=== PATIENT | male | born 1990 | race Caucasian/White ===

== ENCOUNTER 2016-09-04 23:01 | Emergency (ER) | payer OTHER ==
--- NOTE | 2016-09-04 23:21 | ED Physician Documentation ---
PD HPI ABD PAIN - Stated complaint Stated Complaint: RT FLANK PAIN - Chief complaint Chief Complaint: Abd Pain - History obtained from History obtained from: Patient - History of Present Illness Timing - onset: How many days ago (initially with some pain in right flank 2 days ago, then abated, with intermittent pain right back and side until tonight when had abrupt worsening and pain moved to RLQ with radiation to right groin/ testicle.) Timing - details: Abrupt onset, Still present Quality: Aching, Sharp, Pain Location: RLQ Radiation: Right flank Associated symptoms: Nausea. No: Fever, Vomiting, Diarrhea, Melena Similar symptoms before: Has not had sx before Recently seen: Not recently seen Review of Systems Constitutional: reports: Chills. denies: Fever Nose: denies: Rhinorrhea / runny nose, Congestion Throat: denies: Sore throat Cardiac: denies: Chest pain / pressure Respiratory: denies: Cough GI: reports: Abdominal Pain, Nausea. denies: Constipation, Diarrhea : denies: Dysuria, Frequency, Discharge Skin: denies: Rash, Lesions Neurologic: denies: Syncope, Headache PD PAST MEDICAL HISTORY - Past Medical History Past Medical History: No Cardiovascular: None Respiratory: None Neuro: None Endocrine/Autoimmune: None GI: None : None HEENT: None Psych: None Musculoskeletal: None Derm: None - Past Surgical History Past Surgical History: Yes General: Other Ortho: Other - Present Medications Home Medications: Ambulatory Orders Medication Instructions Recorded Confirmed Ondansetron Odt [Zofran] 4 mg TL Q6H PRN #15 tablet 09/05/16 Oxycodone HCl/Acetaminophen 1 each PO Q6H PRN #20 tablet 09/05/16 [Percocet 5-325 mg Tablet] - Allergies Allergies/Adverse Reactions: Allergies Allergy/AdvReac Type Severity Reaction Status Date / Time Sulfa (Sulfonamide AdvReac Anaphylaxis Verified 09/04/16 23:14 Antibiotics) - Social History Does the pt smoke?: Yes Smoking Status: Current every day smoker Does the pt drink ETOH?: Yes Does the pt have substance abuse?: No - Immunizations Immunizations are current?: Yes - POLST Patient has POLST: No PD ED PE NORMAL - Vitals Vital signs reviewed: Yes - General General: Alert and oriented X 3, Well developed/nourished, Other (appears in pain) - Cardiac Cardiac: RRR, No murmur - Respiratory Respiratory: Clear bilaterally - Abdomen Abdomen: Normal bowel sounds, Soft, Non distended, No organomegaly, Other (mild tender RLQ without guarding) - Male Male : Deferred - Rectal Rectal: Deferred - Back Back: Other (moderate right CVA tender to percussion) - Derm Derm: Normal color, Warm and dry, No rash - Neuro Neuro: Alert and oriented X 3, No motor deficit, Normal speech - Psych Psych: Normal mood Results - Vitals Vitals: Vital Signs - 24 hr 09/04/16 23:11 Temperature 36.7 C Heart Rate 81 Respiratory 18 Rate Blood Pressure 138/94 H O2 Saturation 99 Oxygen O2 Source Room air - Rads (name of study) KUB CT Radiology: Prelim report reviewed, EMP read contemporaneously (5 mm stone at UVJ with mild obstruction/ hydronephrosis) PD MEDICAL DECISION MAKING - ED course Complexity details: re-evaluated patient (much improved with pain meds PO. IV start missed initially and he declined IV after that. Went with oral meds (did not want IM). ), considered differential, d/w patient Departure - Departure Disposition: 01 Home, Self Care Clinical Impression: Flank pain, acute, Ureterolithiasis Condition: Stable Record reviewed to determine appropriate education?: Yes Instructions: ED Stone Renal W Colic Prescriptions: Oxycodone HCl/Acetaminophen [Percocet 5-325 mg Tablet] 1 each PO Q6H PRN #20 tablet PRN Reason: Pain Ondansetron Odt [Zofran] 4 mg TL Q6H PRN #15 tablet PRN Reason: Nausea / Vomiting Comments: Drink adequate fluids. Ibuprofen 600-800 mg three times daily for 3-5 days. Add Ondansatron as needed for nausea, and Tylenol or Percocet as needed for pain. Recheck if not improved over the next 2-3 days, sooner if worse. Discharge Date/Time: 09/05/16 00:39
[2016-09-04 23:31] VITALS: BP 138/94
[2016-09-04] MEDS ORDERED: HYDROmorphone 1 MG/ML SYRINGE ONE (23:43)
[2016-09-04] MEDS ORDERED: ONDANSETRON 4 MG/2 ML VIAL ONE (23:44)
[2016-09-05] MEDS: ONDANSETRON 4 MG/2 ML VIAL IVP STA (00:03)
[2016-09-05] MEDS: HYDROmorphone 1 MG/ML SYRINGE IVP STA (00:03)
[2016-09-05] MEDS ORDERED: oxyCOD/ACETAMIN 5 MG/325 MG TABLET PO ONE (00:05)
[2016-09-05] MEDS ORDERED: ONDANSETRON ODT 4 MG TABLET ONE (00:05)
[2016-09-05] MEDS: oxyCOD/ACETAMIN 5 MG/325 MG TABLET PO STA (00:07)
[2016-09-05] MEDS: ONDANSETRON ODT 4 MG TABLET TL STA (00:07)
--- NOTE | 2016-09-05 00:12 | CT Preliminary Report ---
Exam: CT KUB IMPRESSION: 1. Moderately obstructing 5 x 3 mm stone at the right ureterovesical junction. 2. Approximately 2 tiny nonobstructing stones in the left kidney. 3. Fatty liver. 4. Urinary bladder wall thickening. This may be due to hypertrophy and nondistention. Cystitis would also be in the differential diagnosis. [facility] SITE ID: [id number]
--- NOTE | 2016-09-05 00:15 | CT Report ---
EXAM: CT ABDOMEN AND PELVIS (CT KUB) EXAM DATE: 09/04/2016 11:51 PM. CLINICAL HISTORY: Right abd/flank pain. COMPARISONS: None. TECHNIQUE: Routine axial helical CT imaging was performed through the abdomen and pelvis without IV c ontrast. Reconstructions: Coronal and sagittal. In accordance with CT protocol optimization, one or more of the following dose reduction techniques w ere utilized for this exam: automated exposure control, adjustment of mA and/or KV based on patient s ize, or use of iterative reconstructive technique. FINDINGS: Lung Bases: Unremarkable. Right Kidney/Ureter: No stones are seen in the kidney. Moderately obstructing stone at the ureteroves ical junction measuring 5 x 3 mm. Left Kidney/Ureter: Approximately 2 tiny nonobstructing stones in the kidney measuring about 2 mm. No ureteral stone or obstructive uropathy seen. Other Solid Organs: Fatty liver. Spleen, pancreas, and adrenals show no focal abnormalities on this n oncontrast examination. Gallbladder/Bile Ducts: Unremarkable. Peritoneal Cavity: No free fluid, free air or caryl adenopathy. Bowel is grossly unremarkable. Append ix appears normal. Pelvic Organs: Decompressed urinary bladder with wall thickening. Visualized pelvic organs are otherw ise unremarkable. Vasculature: Unremarkable. Other: Right unilateral L5 pars defect. IMPRESSION: 1. Moderately obstructing 5 x 3 mm stone at the right ureterovesical junction. 2. Approximately 2 tiny nonobstructing stones in the left kidney. 3. Fatty liver. 4. Urinary bladder wall thickening. This may be due to hypertrophy and nondistention. Cystitis would also be in the differential diagnosis. [facility] Referring Provider Line: [phone] SITE ID: [id number]
[2016-09-05] MEDS ORDERED: oxyCODONE/ACET 5/325 Prepack 4 PO ONE (00:28)
[2016-09-05] MEDS: oxyCODONE/ACET 5/325 Prepack 4 PO STA (00:38)
== END 2016-09-05 00:39 | disposition home or self-care (01) ==
LOC: ED 23:01
DX: N13.2 Hydronephrosis with renal and ureteral calculous obstruction (principal); K76.0 Fatty (change of) liver, not elsewhere classified; F17.200 Nicotine dependence, unspecified, uncomplicated
CPT/HCPCS: 74176; 99283; 99284

== ENCOUNTER 2017-07-14 16:21 | Emergency (ER) | payer MEDICAID, OTHER ==
[2017-07-14 16:31] VITALS: BP 148/94
--- NOTE | 2017-07-14 16:32 | ED Physician Documentation ---
PD HPI LOWER EXT INJURY - Stated complaint Stated Complaint: L THIGH WOUND - Chief complaint Chief Complaint: Wound - History obtained from History obtained from: Patient - History of Present Illness PD HPI LOW EXT INJURY LOCATION: Left, Thigh Type of injury: Other (persistent/recurrent abscess left medial thigh that got big and drained again today.) Timing - onset: How many weeks ago (has been recurring for couple weeks.) Timing - duration: Weeks Timing - details: Gradual onset, Still present, Waxing and waning (will drain and then recur.) Worsened by: Palpating Associated symptoms: Swelling. No: Weakness, Numbness Similar symptoms before: No diagnosis Review of Systems Constitutional: denies: Fever, Chills, Myalgias Skin: reports: Lesions Neurologic: denies: Focal weakness, Numbness PD PAST MEDICAL HISTORY - Past Medical History Cardiovascular: None Respiratory: None Neuro: None Endocrine/Autoimmune: None GI: None : None HEENT: None Psych: None Musculoskeletal: None Derm: None - Past Surgical History Past Surgical History: Yes General: Other Ortho: Other - Present Medications Home Medications: Ambulatory Orders Medication Instructions Recorded Confirmed Albuterol 2.5 mg INH Q4H PRN 07/14/17 07/14/17 Chlorhexidine Gluconate [Hibiclens] 10 ml TP DAILY #473 ml 07/14/17 Doxycycline Monohydrate 100 mg PO BID #14 tablet 07/14/17 HYDROcod/ACETAM 5/325 [Eminence 5/325] 1 tab PO Q6H PRN #20 tablet 07/14/17 Mupirocin 1 applic TP TID #15 oint...g. 07/14/17 - Allergies Allergies/Adverse Reactions: Allergies Allergy/AdvReac Type Severity Reaction Status Date / Time Sulfa (Sulfonamide AdvReac Anaphylaxis Verified 07/14/17 16:31 Antibiotics) - Social History Does the pt smoke?: Yes Smoking Status: Current every day smoker Does the pt drink ETOH?: Yes Does the pt have substance abuse?: No - Immunizations Immunizations are current?: Yes - POLST Patient has POLST: No PD ED PE NORMAL - Vitals Vital signs reviewed: Yes - General General: Alert and oriented X 3, No acute distress, Well developed/nourished - Derm Derm: Normal color, Warm and dry - Extremities Extremities: Other (left upper medial thigh with skin hole without drainage now. There is underlying induration and some skin redness. Bedside U/S showed soft tissue swelling without residual fluid collection. ) - Neuro Neuro: Alert and oriented X 3, No motor deficit, No sensory deficit, Normal speech Results - Vitals Vitals: Vital Signs - 24 hr 07/14/17 16:28 Temperature 36.9 C Heart Rate 80 Respiratory 16 Rate Blood Pressure 148/94 H O2 Saturation 99 Oxygen O2 Source Room air PD MEDICAL DECISION MAKING - ED course Complexity details: considered differential (abscess that has self drained, and bedside U/S showing that it is adequately drained.), d/w patient Departure - Departure Disposition: Home, Self Care Clinical Impression: Abscess of left thigh Condition: Stable Record reviewed to determine appropriate education?: Yes Instructions: ED Staph Infec Abx Tx Only Prescriptions: Chlorhexidine Gluconate [Hibiclens] 10 ml TP DAILY #473 ml Doxycycline Monohydrate 100 mg PO BID #14 tablet HYDROcod/ACETAM 5/325 [[place]minence 5/325] 1 tab PO Q6H PRN #20 tablet PRN Reason: Pain Mupirocin 1 applic TP TID #15 oint...g. Comments: Warm soaks or moist towels to the area a few times a day to increase blood flow and promote drainage. It seems to have drained pretty adequately at this point. Doxycycline twice daily for a week to try to get rid of the infection underneath. He can use mupirocin topical antibiotic at the area. Use chlorhexidine antiseptic body wash whole body when you are showering and in particular around the groin and rectal area to decrease the amount of germs that are present. See if this allows it to heal up fully and be completely gone. Subsequently can do the chlorhexidine antiseptic wash once or twice a week ongoing to prevent recurrences. Recheck if not fully gone over the next week. Discharge Date/Time: 07/14/17 17:12
[2017-07-14] MEDS ORDERED: MUPIROCIN 2% OINT 1 GM TOP STA (17:02)
[2017-07-14] MEDS ORDERED: HYDROcod/ACETAM 5/325 MG TABLET PO STA (17:02)
[2017-07-14] MEDS ORDERED: DOXYCYCLINE 100 MG TABLET PO STA (17:02)
== END 2017-07-14 17:12 | disposition home or self-care (01) ==
LOC: ED 16:21
DX: L02.416 Cutaneous abscess of left lower limb (principal); F17.200 Nicotine dependence, unspecified, uncomplicated
CPT/HCPCS: 99283; A9270

== ENCOUNTER 2017-07-27 14:30 | Emergency (ER) | payer MEDICAID ==
[2017-07-27 14:47] VITALS: BP 146/95
--- NOTE | 2017-07-27 15:28 | ED Physician Documentation ---
PD HPI SKIN - Stated complaint Stated Complaint: LFT THIGH PX - Chief complaint Chief Complaint: Wound - History obtained from History obtained from: Patient, Family (spouse) - History of Present Illness Timing - details: Gradual onset Quality / character: Swelling Recently seen: Emergency Dept - Additional information Additional information: The patient is a 26-year-old male who complains of recurrent painful swelling on his right thigh near the groin. He was seen here 2 weeks ago with similar presentation, only worse at that time. He was prescribed a one-week course of doxycycline for staph infection. The infection almost completely cleared. However since the course of antibiotics completed 6 days ago the swelling has resumed, but is not as bad as before. Review of Systems Constitutional: denies: Fever GI: denies: Abdominal Pain, Vomiting : denies: Dysuria, Testicular pain Skin: denies: Rash Musculoskeletal: denies: Back pain Neurologic: denies: Headache PD PAST MEDICAL HISTORY - Past Medical History Past Medical History: No Cardiovascular: None Respiratory: None Endocrine/Autoimmune: None GI: None : None HEENT: None Psych: None Musculoskeletal: None Derm: None - Past Surgical History Past Surgical History: Yes General: Other Ortho: Other - Present Medications Home Medications: Ambulatory Orders Medication Instructions Recorded Confirmed Albuterol 2.5 mg INH Q4H PRN 07/14/17 07/14/17 Chlorhexidine Gluconate [Hibiclens] 10 ml TP DAILY #473 ml 07/14/17 Doxycycline Monohydrate 100 mg PO BID #14 tablet 07/14/17 HYDROcod/ACETAM 5/325 [Barry 5/325] 1 tab PO Q6H PRN #20 tablet 07/14/17 Mupirocin 1 applic TP TID #15 oint...g. 07/14/17 Doxycycline Monohydrate 100 mg PO BID #20 tablet 07/27/17 HYDROcod/ACETAM 5/325 [Vicodin 1 ea PO Q6H PRN #10 tablet 07/27/17 5/325] - Allergies Allergies/Adverse Reactions: Allergies Allergy/AdvReac Type Severity Reaction Status Date / Time Sulfa (Sulfonamide AdvReac Anaphylaxis Verified 07/14/17 16:31 Antibiotics) - Social History Does the pt smoke?: Yes Smoking Status: Current every day smoker Does the pt drink ETOH?: Yes Does the pt have substance abuse?: No - Immunizations Immunizations are current?: Yes - POLST Patient has POLST: No PD ED PE NORMAL - Vitals Vital signs reviewed: Yes (Initially hypertensive.) - General General: Alert and oriented X 3, Well developed/nourished - HEENT HEENT: Atraumatic - Respiratory Respiratory: No respiratory distress - Abdomen Abdomen: Soft, Non tender - Derm Derm: No rash - Extremities Extremities: Other (There is a 1 cm diameter area of slight erythema, swelling, and tenderness to palpation at the right anterior medial thigh, near the groin. There is no significant inguinal adenopathy.) - Neuro Neuro: Alert and oriented X 3, No motor deficit, Normal speech Results - Vitals Vitals: Oxygen O2 Source Room air PD MEDICAL DECISION MAKING - ED course Complexity details: reviewed old records, considered differential, d/w patient, d/w family ED course: The patient's presentation is significant for a recurrent/persistent abscess in his right proximal thigh. I discussed with him and his the benefit of incision and drainage, but the patient refused, stating that it almost completely cleared up with the antibiotic that had been previously prescribed. He wants to be treated with antibiotic again, and he will agree to incision and drainage if he has continued infection, or recurrence of infection after a second course of antibiotics. He is being discharged with prescription for 10 day course of doxycycline. I discussed with him and his potentially worrisome signs or symptoms that should prompt reevaluation in the emergency department. Departure - Departure Disposition: 01 Home, Self Care Clinical Impression: Abscess of left thigh Condition: Stable Instructions: ED Staph Infec Abx Tx Only Follow-Up: Alex Méndez PA-C [Primary Care Provider] - Prescriptions: Doxycycline Monohydrate 100 mg PO BID #20 tablet HYDROcod/ACETAM 5/325 [Vicodin 5/325] 1 ea PO Q6H PRN #10 tablet PRN Reason: Pain Comments: Take doxycycline twice daily as prescribed. Apply hot soaks to the infected areas intermittently for the next 3 or 4 days. You can use ibuprofen, up to 800 mg 3 times daily for its anti-inflammatory effect. You can use Vicodin as prescribed if needed for pain. Follow up with your primary physician with within 2 weeks as scheduled. Return to the emergency department if you develop increasing pain or swelling, or otherwise worsening symptoms. Discharge Date/Time: 07/27/17 15:33
== END 2017-07-27 15:33 | disposition home or self-care (01) ==
LOC: ED 14:30
DX: L02.415 Cutaneous abscess of right lower limb (principal); F17.200 Nicotine dependence, unspecified, uncomplicated
CPT/HCPCS: 99283

== ENCOUNTER 2017-09-05 08:00 | Outpatient (CLI) | payer MEDICAID ==
[2017-09-05 12:29] LABS: ALBUMIN 4.3 g/dL (3.2-5.5); ALBUMIN/GLOBULIN RATIO 1.4 (1.0-2.2); BASOPHILS # (AUTO) 0.1 10^3/uL (0.0-0.1); BASOPHILS % (AUTO) 0.8 %; CALCIUM 9.5 mg/dL (8.5-10.3); CREATININE 0.9 mg/dL (0.6-1.2); EOSINOPHILS # (AUTO) 0.4 10^3/uL (0.0-0.7); EOSINOPHILS % (AUTO) 4.7 %; HGB - HEMOGLOBIN 16.7 g/dL (14.0-18.0); LYMPHOCYTES # (AUTO) 2.5 10^3/uL (1.5-3.5); LYMPHOCYTES % (AUTO) 26.2 %; MEAN CORPUSCULAR HEMOGLOBIN 32.6 pg (27.0-31.0); MEAN CORPUSCULAR HGB CONC 34.4 g/dL (32.0-36.0); MEAN CORPUSCULAR VOLUME 94.8 fL (80.0-94.0); MEAN PLATELET VOLUME 9.6 fL (7.4-11.4); MONOCYTES # (AUTO) 0.8 10^3/uL (0.0-1.0); MONOCYTES % (AUTO) 8.8 %; NEUTROPHILS # (AUTO) 5.7 10^3/uL (1.5-6.6); NEUTROPHILS % (AUTO) 59.5 %; PLT - PLATELET COUNT 201 10^3/uL (130-450); RED BLOOD COUNT 5.12 10^6/uL (4.70-6.10); RED CELL DISTRIBUTION WIDTH 12.8 % (12.0-15.0); TOTAL PROTEIN 7.3 g/dL (6.7-8.2); WHITE BLOOD COUNT 9.5 x10^3/uL (4.8-10.8)
== END 2017-09-05 08:01 ==
LOC: LAB.N 08:00
PROVIDERS: ATTEND Physician Assistant Medical
DX: F10.10 Alcohol abuse, uncomplicated (principal); Z72.0 Tobacco use; J45.909 Unspecified asthma, uncomplicated
CPT/HCPCS: 36415; 80053; 85025

== ENCOUNTER 2017-10-16 08:00 | Outpatient (CLI) | payer MEDICAID | END 2017-10-16 08:01 | disposition home or self-care (01) | LOC: LAB.R 08:00 | PROVIDERS: ATTEND Internal Medicine Gastroenterology | DX: L02.92 Furuncle, unspecified (principal); L05.02 Pilonidal sinus with abscess | CPT/HCPCS: 87081 ==

== ENCOUNTER 2017-10-16 14:14 | Outpatient (CLI) | payer MEDICAID | END 2017-10-16 14:15 | disposition home or self-care (01) | LOC: LAB 14:14 | PROVIDERS: ATTEND Internal Medicine Gastroenterology | DX: L02.92 Furuncle, unspecified (principal); L05.02 Pilonidal sinus with abscess | CPT/HCPCS: 87081; 87640 ==

== ENCOUNTER 2019-02-26 09:00 | Outpatient (CLI) | payer BC, MEDICAID | END 2019-02-26 23:59 | disposition home or self-care (01) | LOC: LAB.R 09:00 | PROVIDERS: ATTEND Physician Assistant Medical | DX: J02.9 Acute pharyngitis, unspecified (principal) | CPT/HCPCS: 87070 ==

== ENCOUNTER 2019-09-19 08:43 | Outpatient (CLI) | payer OTHER | END 2019-09-19 08:44 | disposition home or self-care (01) | LOC: LAB 08:43 | PROVIDERS: ATTEND Surgery | DX: Z01.812 Encounter for preprocedural laboratory examination (principal); L05.91 Pilonidal cyst without abscess; Z20.828 Contact with and (suspected) exposure to other viral communicable diseases | CPT/HCPCS: 81599 ==

== ENCOUNTER 2019-09-23 07:25 | Day surgery (SDC) | payer OTHER ==
[2019-09-23] MEDS ORDERED: NEOSTIGMINE 1 MG/1 ML 10 ML MDV IVP ONE (07:26)
[2019-09-23] MEDS ORDERED: ROCURONIUM 50 MG/5 ML VIAL IVP ONE (07:26)
[2019-09-23] MEDS ORDERED: PROPOFOL 200 MG/20 ML VIAL IVP ONE (07:26)
[2019-09-23] MEDS ORDERED: GLYCOPYRROLATE 1 MG/5 ML VIAL IVP ONE (07:26)
[2019-09-23] MEDS ORDERED: KETAMINE 500 MG/10 ML VIAL IVP ONE (07:26)
[2019-09-23] MEDS ORDERED: KETOROLAC 30 MG/ML VIAL IVP ONE (07:26)
[2019-09-23] MEDS ORDERED: MIDAZOLAM 2 MG/2 ML VIAL IVP ONE (07:26)
[2019-09-23] MEDS ORDERED: ONDANSETRON 4 MG/2 ML VIAL IVP ONE (07:26)
[2019-09-23] MEDS ORDERED: fentaNYL 100 MCG/2 ML VIAL IVP ONE (07:26)
[2019-09-23] MEDS ORDERED: LACTATED RINGERS 1,000 ML IV ONE ×2 (07:50→09:58)
[2019-09-23] MEDS ORDERED: LIDOCAINE 1%-EPI 1:100000 20 ML MDV ONE (07:57)
[2019-09-23] MEDS ORDERED: BUPIVACAINE 0.25% PF 30 ML VIAL ONE ×2 (07:57→08:20)
[2019-09-23] MEDS ORDERED: ceFAZolin 3 GM in SODIUM CHLORIDE 0.9% 100ML 100 ML IV ONE (08:00)
--- NOTE | 2019-09-23 08:03 | ANESTHESIA ---
Pre-Anesthesia VS, & Labs - Diagnosis pilonidal cyst - Procedure Pilonidal cystectomy Vital Signs: Temp Pulse Resp BP Pulse Ox 36.5 C 83 16 140/105 H 97 09/23/19 07:30 09/23/19 07:30 09/23/19 07:30 09/23/19 07:30 09/23/19 07:30 Height 5 ft 10 in Weight (kg) 119.5 kg Body Mass Index 33.7 - NPO >8 hours Home Medications and Allergies Home Medications: Ambulatory Orders Fluticasone 44 Mcg [Flovent] 1 puffs INH BID 09/15/19 Omeprazole 40 mg PO DAILY 09/15/19 Active Medications Cefazolin Sodium 3 gm/ Sodium (Chloride) 100 mls @ 200 mls/hr IV ONCE ONE Stop: 09/23/19 08:29 Albuterol 2.5 mg INH Q4H PRN 07/14/17 Fluticasone 44 Mcg [Flovent] 1 puffs INH BID 09/15/19 Omeprazole 40 mg PO DAILY 09/15/19 Allergies/Adverse Reactions: Allergies Allergy/AdvReac Type Severity Reaction Status Date / Time Sulfa (Sulfonamide AdvReac Anaphylaxis Verified 09/22/19 13:37 Antibiotics) Anes History & Medical History - Anesthetic History Anesthesia Complications: reports: No previous complications Family history of Anesthesia Complications: Denies Family history of Malignant Hyperthermia: Denies - Medical History Cardiovascular: reports: None, Other (bicuspid aortic valve) Pulmonary: reports: Asthma (pm steroid inhaler) Gastrointestinal: reports: GERD Urinary: reports: Kidney stones Neuro: reports: None Musculoskeletal: reports: None Endocrine/Autoimmune: reports: None Blood Disorders: reports: None Skin: reports: None Smoking Status: Former smoker (quit march 04 2019) Psychosocial: reports: Anxiety, Alcohol ("once every two weeks") - Surgical History General:  Orthopedic: Other Exam General: Alert, Oriented x3, Cooperative, No acute distress Dental: WNL Mouth Openin Fingerbreadth Neck Mobility: Normal Mallampati classification: II Thyromental Distance: 4-6 cm Respiratory: Lungs clear, Normal breath sounds, No respiratory distress, No accessory muscle use Cardiovascular: Regular rate, Normal S1, Normal S2, No murmurs Abdomen: Normal bowel sounds, Soft, No tenderness, No hepatospenomegaly, No masses Extremities: No clubbing, No cyanosis, No edema, Normal pulses, No tenderness/swelling Neurological: Normal gait, Normal speech, Strength at 5/5 X4 ext, Normal tone, Sensation intact, Cranial nerves 3-12 NL, Reflexes 2+ Mental/Cognitive Status: Alert/Oriented X3, Normal for patient Cognitive Status: Within normal limits Plan Anesthesia Type: General Consent for Procedure(s) Verified and Reviewed: Yes Code Status: Attempt Resuscitation ASA classification: 2-Mild systemic disease Is this case an emergency?: No
[2019-09-23] MEDS ORDERED: metroNIDAZOLE 500 MG/100 ML 500 MG/100 ML BAG ONE (08:06)
[2019-09-23] MEDS ORDERED: BUPIVACAINE 0.25% PF 30 ML VIAL SUBQ ONE ×2 (09:08)
[2019-09-23] MEDS ORDERED: HYDROcod/ACETAM 5/325 MG TABLET PO PRN (09:58)
[2019-09-23] MEDS: fentaNYL 100 MCG/2 ML VIAL ONE ×2 (10:06→10:19)
[2019-09-23] MEDS ORDERED: ACETAMINOPHEN 1,000 MG/100 ML 100 ML IV ONE (10:11)
--- NOTE | 2019-09-23 10:42 | OPERATIVE REPORT ---
DATE OF SERVICE: 09/23/2019 Physician: Uvaldo Johnson MD PREOPERATIVE DIAGNOSIS: Pilonidal disease, complicated. POSTOPERATIVE DIAGNOSIS: Pilonidal disease, complicated. PROCEDURE PERFORMED: Pilonidal cystectomy, [place] procedure. SURGEON: Uvaldo Johnson MD POT MAKER: None. TYPE OF ANESTHESIA 1. General endotracheal anesthesia. 2. Local anesthesia with Marcaine 60 mL of 0.25. ESTIMATED BLOOD LOSS: 100 mL DRAINS: None. FINDINGS: A very extensive or complicated pilonidal cyst disease. Numerous midline pits and significant scar tissue. He had an inflammatory mass measuring approximately 2 x 4 x 6 cm. SPECIMEN: Clinically benign, not sent for pathology. DRAINS: None. INDICATIONS FOR PROCEDURE: Patient is a healthy 29-year-old gentleman with significant pilonidal cyst disease for several years. He has near daily bleeding. He presents for excision. Risks discussed, alternatives discussed. All questions answered and consent obtained. PROCEDURE: Patient was properly identified, brought to the operating room. While on the stretcher general endotracheal anesthesia was induced. Sequential compression devices were placed. He was carefully repositioned prone. He was prepped and draped in a sterile fashion, given preoperative antibiotics. Local anesthetic was given throughout the procedure. He had a 1 cm inflammatory nodule cephalad. Approximately 3 cm caudad in midline. He had 3 nearly adjacent sinus tracts. An additional sinus tract was present, another 2 cm caudad. An elliptical incision was made around the inflammatory nodule and extended left lateral. The midline sinus tracts were excised with an 11 blade. He had significant scarring to the midline requiring taking a small portion of the midline skin, connecting the sinus tract area. The pilonidal cyst was removed in its entirety, back to normal healthy tissue. Subcutaneous flaps were created right lateral and left lateral. Hemostasis was achieved with cautery. Deep subcutaneous tissue was closed with interrupted 2-0 Vicryl suture. Buried interrupted subdermal 3-0 Vicryl sutures were then placed at the lateral incision. Skin was closed with vertical mattress 3-0 nylon. He tolerated the procedure well, was placed back on the stretcher, awakened and brought to Recovery in good condition. TD: 09/23/2019 10:32 [facility]
[2019-09-23 11:30] VITALS: BP 132/80
== END 2019-09-23 07:26 | disposition home or self-care (01) ==
LOC: SDS 07:25
PROVIDERS: ATTEND Surgery
DX: L05.92 Pilonidal sinus without abscess (principal); J45.909 Unspecified asthma, uncomplicated; Z87.891 Personal history of nicotine dependence
CPT/HCPCS: 11772; J0131; J7120

== ENCOUNTER 2019-12-16 14:50 | Outpatient (CLI) | payer SELFPAY | END 2019-12-16 23:59 | disposition home or self-care (01) | LOC: COV 14:50 | PROVIDERS: ATTEND Family Medicine | DX: Z20.828 Contact with and (suspected) exposure to other viral communicable diseases (principal) ==

== ENCOUNTER 2020-03-15 10:03 | Outpatient (CLI) | payer OTHER | END 2020-03-15 10:04 | disposition home or self-care (01) | LOC: COV 10:03 | PROVIDERS: ATTEND Family Medicine | DX: Z20.828 Contact with and (suspected) exposure to other viral communicable diseases (principal) ==

== ENCOUNTER 2021-08-23 08:00 | Outpatient (CLI) | payer OTHER ==
--- NOTE | 2021-08-23 15:12 | XRAY Report ---
PROCEDURE: Shoulder 3 View RT INDICATIONS: SPRAIN OF R SHOULDER TECHNIQUE: 3 views of the shoulder were acquired. COMPARISON: None. FINDINGS: Bones: No fractures or dislocations. No suspicious bony lesions. Visualized ribs appear intact. Soft tissues: No suspicious soft tissue calcifications. IMPRESSION: No acute fracture. No osseous lesion. If symptoms and/or clinical suspicion for patholog y continue, further assessment with repeat plain films, or advanced imaging (e.g., CT, MRI, or bone s can) is recommended for further assessment. Reviewed by: Cisco Guzman MD on 08/23/2021 3:11 PM PDT Approved by: Cisco Guzman MD on 08/23/2021 3:11 PM PDT Station ID: [id number]
== END 2021-08-23 23:59 | disposition home or self-care (01) ==
LOC: DI.N 08:00
PROVIDERS: ATTEND Physician Assistant
DX: S43.491A Other sprain of right shoulder joint, initial encounter (principal)

== ENCOUNTER 2022-02-10 07:29 | Outpatient (CLI) | payer OTHER | END 2022-02-10 23:59 | disposition critical access hospital (66) | LOC: EMS 07:29 | DX: J45.901 Unspecified asthma with (acute) exacerbation (principal) | CPT/HCPCS: A0425; A0427 ==

== ENCOUNTER 2022-02-10 07:46 | Emergency (ER) | payer OTHER ==
[2022-02-10] MEDS ORDERED: LORazepam 2 MG/ML VIAL IVP STA (07:52)
[2022-02-10] MEDS ORDERED: SODIUM CHLORIDE 0.9% 1,000 ML IV STA (07:55)
--- NOTE | 2022-02-10 08:12 | ED Physician Documentation ---
History of Present Illness - Stated complaint Stated Complaint: SOA - Chief complaint Chief Complaint: Resp - History obtained from History obtained from: Patient, EMS - History of Present Illness Timing: Today Pain level max: 0 Pain level now: 0 - Additonal information Additional information: Patient is a 31-year-old male who presents to the emergency department stating he has a history of asthma. He was having difficulty breathing this morning. Was picked up by EMS. EMS states that the patient had significant difficulty breathing initially. They gave 2 DuoNeb treatments, Solu-Medrol, magnesium and epinephrine. Patient is currently breathing easier. He is able to speak in several word sentences. He states he feels like his chest is still tight. He states he has not been sick recently. No fevers. No cough. No chills. He states he takes medications at home but does not know what they are. Nothing was making his symptoms better or worse at home. Review of Systems Ten Systems: 10 systems reviewed and negative Constitutional: denies: Fever, Chills Respiratory: reports: Dyspnea, Wheezing. denies: Cough GI: denies: Abdominal Pain, Nausea, Vomiting, Diarrhea Skin: denies: Rash Musculoskeletal: denies: Neck pain, Back pain Neurologic: denies: Headache PD PAST MEDICAL HISTORY - Past Medical History Cardiovascular: None, Other (bicuspid aortic valve) Respiratory: Asthma (pm steroid inhaler) Neuro: None Endocrine/Autoimmune: None GI: GERD : Kidney stones HEENT: None Psych: None Musculoskeletal: None Derm: None - Past Surgical History Past Surgical History: Yes General:  Ortho: Other - Present Medications Home Medications: Ambulatory Orders Medication Instructions Recorded Confirmed Albuterol 2.5 mg INH Q4H PRN 07/14/17 09/22/19 Fluticasone 44 Mcg [Flovent] 1 puffs INH BID 09/15/19 09/23/19 Omeprazole 40 mg PO DAILY 09/15/19 09/23/19 Hydrocodone/Acetaminophen 1 each PO Q6HR PRN #30 tablet 09/23/19 [Hydrocodone-Acetamin 5-325 mg] predniSONE [Deltasone] 10 mg PO [id number] #42 tab 02/10/22 - Allergies Allergies/Adverse Reactions: Allergies Allergy/AdvReac Type Severity Reaction Status Date / Time Sulfa (Sulfonamide AdvReac Anaphylaxis Verified 09/22/19 13:37 Antibiotics) - Social History Does the pt smoke?: Yes Smoking Status: Former smoker (quit march 04 2019) Does the pt drink ETOH?: Yes Does the pt have substance abuse?: No - Immunizations Immunizations are current?: Yes - POLST Patient has POLST: No PD ED PE NORMAL - Vitals Vital signs reviewed: Yes - General General: Alert and oriented X 3, No acute distress - HEENT HEENT: PERRL, Moist mucous membranes, Pharynx benign - Neck Neck: Supple, no meningeal sign, Other (No stridor) - Cardiac Cardiac: RRR - Respiratory Respiratory: No respiratory distress, Other (Mild wheeze bilaterally) - Abdomen Abdomen: Soft, Non tender, Non distended - Derm Derm: Warm and dry - Extremities Extremities: No edema - Neuro Neuro: Alert and oriented X 3 - Psych Psych: Normal mood, Normal affect Results - Vitals Vitals: Vital Signs - 24 hr 02/10/22 02/10/22 02/10/22 07:58 09:18 09:23 Temperature 99.1 C H Heart Rate 105 H 90 Respiratory 14 18 Rate Blood Pressure 97/69 150/72 H O2 Saturation 95 100 98 02/10/22 10:39 Temperature Heart Rate 93 Respiratory 16 Rate Blood Pressure 101/78 O2 Saturation 99 Oxygen O2 Source Room air Oxygen Flow Rate 2 - Labs Labs: Laboratory Tests 02/10/22 02/10/22 02/10/22 08:05 08:05 09:07 WBC 26.3 H RBC 6.15 H Hgb 18.8 H Hct 53.6 H MCV 87.2 MCH 30.6 MCHC 35.1 RDW 11.8 L Plt Count 423 MPV 10.0 Neut # (Auto) 16.6 H Lymph # (Auto) 8.0 H [place] # (Auto) 1.3 H Eos # (Auto) 0.2 Baso # (Auto) 0.1 Absolute Nucleated RBC 0.00 Nucleated RBC % 0.0 Manual Slide Review Indicated WBC Morphology Platelet Estimate NORMAL (130-450,000) Platelet Morphology NORMAL APPEARANCE RBC Morph Micro Appear NORMAL APPEARANCE Sodium 138 Potassium 3.3 L Chloride 100 L Carbon Dioxide 23 Anion Gap 15.0 H BUN 15 Creatinine 1.3 H Estimated GFR (MDRD) 64 L Glucose 292 H Calcium 9.7 Total Bilirubin 0.8 AST 43 H ALT 81 H Alkaline Phosphatase 69 Total Protein 7.0 Albumin 4.3 Globulin 2.7 Albumin/Globulin Ratio 1.6 Nasal Adenovirus (PCR) NOT DETECTED Nasal B. parapertussis DNA (PCR) NOT DETECTED Nasal Coronavir 229E PCR NOT DETECTED Nasal Coronavir HKU1 PCR NOT DETECTED Nasal Coronavir NL63 PCR NOT DETECTED Nasal Coronavir OC43 PCR NOT DETECTED Nasal Enterovir/Rhinovir PCR NOT DETECTED Nasal Influenza B PCR NOT DETECTED Nasal Influenza A PCR NOT DETECTED Nasal Parainfluen 1 PCR NOT DETECTED Nasal Parainfluen 2 PCR NOT DETECTED Nasal Parainfluen 3 PCR NOT DETECTED Nasal Parainfluen 4 PCR NOT DETECTED Nasal RSV (PCR) NOT DETECTED Nasal B.pertussis DNA PCR NOT DETECTED Nasal C.pneumoniae (PCR) NOT DETECTED Umair Human Metapneumo PCR NOT DETECTED Nasal M.pneumoniae (PCR) NOT DETECTED Nasal SARS-CoV-2 (PCR) NOT DETECTED - Rads (name of study) Chest x-ray Radiology: Final report received, EMP read contemporaneously, See rad report (No acute abnormality) PD MEDICAL DECISION MAKING - ED course Complexity details: reviewed results, re-evaluated patient, considered differential, d/w patient, d/w family ED course: Symptoms fully resolved in the emergency department. Patient is well-appearing, nontoxic. Afebrile. No hypoxia. No respiratory distress. Requesting to go home at this time. We will place on a steroid taper for home. He has inhalers and spacers at home. He will follow-up with his doctor for further care. Counseled to have his blood sugar rechecked with his doctor as it is elevated today. Patient counseled regarding signs and symptoms for which I believe and urgent re-evaluation would be necessary. Patient with good understanding of and agreement to plan and is comfortable going home at this time This document was made in part using voice recognition software. While efforts are made to proofread this document, sound alike and grammatical errors may occur. Departure - Departure Disposition: Home, Self Care Clinical Impression: Asthma exacerbation Qualifiers: Asthma severity: unspecified severity Asthma persistence: unspecified Qualified Code(s): J45.901 - Unspecified asthma with (acute) exacerbation Condition: Good Instructions: ED Reactive Airway Disease Follow-Up: your,doctor in 1 week [Other] Prescriptions: predniSONE [Deltasone] 10 mg PO [id number] #42 tab Comments: Continue your current medications at home. Return if you worsen. Your prescriptions were sent to [facility] in [place]. Your blood sugar was high today as we discussed, this should be followed up by your doctor and rechecked. Discharge Date/Time: 02/10/22 10:39
[2022-02-10 08:15] LABS: BASOPHILS # (AUTO) 0.1 10^3/uL (0.0-0.1); BASOPHILS % (AUTO) 0.2 %; EOSINOPHILS # (AUTO) 0.2 10^3/uL (0.0-0.7); EOSINOPHILS % (AUTO) 0.6 %; HCT - HEMATOCRIT 53.6 % (42.0-52.0); HGB - HEMOGLOBIN 18.8 g/dL (14.0-18.0); LYMPHOCYTES % (AUTO) 30.3 %; MEAN CORPUSCULAR HEMOGLOBIN 30.6 pg (27.0-31.0); MEAN CORPUSCULAR HGB CONC 35.1 g/dL (32.0-36.0); MEAN CORPUSCULAR VOLUME 87.2 fL (80.0-94.0); MONOCYTES # (AUTO) 1.3 10^3/uL (0.0-1.0); NEUTROPHILS # (AUTO) 16.6 10^3/uL (1.5-6.6); NEUTROPHILS % (AUTO) 63.1 %; PLT - PLATELET COUNT 423 10^3/uL (130-450); RED BLOOD COUNT 6.15 10^6/uL (4.70-6.10); RED CELL DISTRIBUTION WIDTH 11.8 % (12.0-15.0); WHITE BLOOD COUNT 26.3 x10^3/uL (4.8-10.8)
[2022-02-10 08:18] LABS: SLIDE REVIEW? Indicated
[2022-02-10 08:24] LABS: ALBUMIN 4.3 g/dL (3.2-5.5); ALBUMIN/GLOBULIN RATIO 1.6 (1.0-2.2); BILIRUBIN,TOTAL 0.8 mg/dL (0.2-1.0); CALCIUM 9.7 mg/dL (8.5-10.3); CREATININE 1.3 mg/dL (0.6-1.2); POTASSIUM 3.3 mmol/L (3.5-5.0)
--- NOTE | 2022-02-10 08:27 | XRAY Report ---
PROCEDURE: Chest 1 View X-Ray INDICATIONS: dyspnea TECHNIQUE: One view of the chest was acquired. COMPARISON: None. FINDINGS: Surgical changes and devices: None. Lungs and pleura: No pleural effusions or pneumothorax. Lungs are clear. Mediastinum: Mediastinal contours appear normal. Heart size is normal. Bones and chest wall: No suspicious bony lesions. Overlying soft tissues appear unremarkable. IMPRESSION: No evidence acute pulmonary process. Reviewed by: Maynor Brito MD on 02/10/2022 8:25 AM [facility] Approved by: Maynor Brito MD on 02/10/2022 8:25 AM [facility] Station ID: [id number]
[2022-02-10 08:29] LABS: PLATELET ESTIMATE, MANUAL NORMAL (130-450,000) (NORMAL); PLATELET MORPHOLOGY NORMAL APPEARANCE (NORMAL); RBC MORPHOLOGY (MULTIPLE) NORMAL APPEARANCE (NORMAL)
[2022-02-10] MEDS ORDERED: predniSONE 20 MG TABLET PO STA (09:06)
[2022-02-10 10:06] LABS: B. PARAPERTUSSIS- RESP PCR PAN NOT DETECTED; B. PERTUSSIS- RESP PCR PANEL NOT DETECTED; C. PNEUMONIAE- RESP PCR PANEL NOT DETECTED; CORONAVIRUS 229E-RESP PCR NOT DETECTED; CORONAVIRUS HKU1-RESP PCR NOT DETECTED; CORONAVIRUS NL63-RESP PCR NOT DETECTED; CORONAVIRUS OC43-RESP PCR NOT DETECTED; HUMAN METAPNEUMOVIRUS NOT DETECTED; INFLUENZA A- RESP PCR PANEL NOT DETECTED; INFLUENZA B - RESP PCR PANEL NOT DETECTED; M. PNEUMONIAE- RESP PCR PANEL NOT DETECTED; PARAINFLUENZA VIRUS 1 NOT DETECTED; PARAINFLUENZA VIRUS 2 NOT DETECTED; PARAINFLUENZA VIRUS 3 NOT DETECTED; PARAINFLUENZA VIRUS 4 NOT DETECTED; RHINOVIRUS/ENTEROVIRUS NOT DETECTED; RSV- RESP PCR PANEL NOT DETECTED; SARS-CoV-2 -RESP PCR PANEL NOT DETECTED
[2022-02-10 10:40] VITALS: BP 101/78
[2022-02-10 12:47] LABS: ESTIMATED AVERAGE GLUCOSE 120 mg/dL (70-100); HEMOGLOBIN A1c% 5.8 % (4.27-6.07)
== END 2022-02-10 10:39 | disposition home or self-care (01) ==
LOC: EDUNIT# → EDBD → ED 07:46
DX: J45.901 Unspecified asthma with (acute) exacerbation (principal); Z87.891 Personal history of nicotine dependence; Z79.899 Other long term (current) drug therapy
CPT/HCPCS: 36415; 71045; 80053; 83036; 85025; 87633; 96374; 99283; 99284; J2060; J7512

== ENCOUNTER 2022-02-12 09:40 | Emergency (ER) | payer OTHER ==
[2022-02-12 10:01] VITALS: BP 161/110
[2022-02-12 10:23] LABS: BASOPHILS % (AUTO) 0.1 %; EOSINOPHILS # (AUTO) 0.2 10^3/uL (0.0-0.7); EOSINOPHILS % (AUTO) 1.1 %; HCT - HEMATOCRIT 44.4 % (42.0-52.0); HGB - HEMOGLOBIN 15.5 g/dL (14.0-18.0); LYMPHOCYTES # (AUTO) 3.8 10^3/uL (1.5-3.5); LYMPHOCYTES % (AUTO) 26.1 %; MEAN CORPUSCULAR HEMOGLOBIN 31.1 pg (27.0-31.0); MEAN CORPUSCULAR HGB CONC 34.9 g/dL (32.0-36.0); MEAN PLATELET VOLUME 9.9 fL (7.4-11.4); MONOCYTES # (AUTO) 0.9 10^3/uL (0.0-1.0); MONOCYTES % (AUTO) 6.2 %; NEUTROPHILS # (AUTO) 9.7 10^3/uL (1.5-6.6); NEUTROPHILS % (AUTO) 66.2 %; PLT - PLATELET COUNT 289 10^3/uL (130-450); RED BLOOD COUNT 4.99 10^6/uL (4.70-6.10); RED CELL DISTRIBUTION WIDTH 12.1 % (12.0-15.0); WHITE BLOOD COUNT 14.6 x10^3/uL (4.8-10.8)
[2022-02-12 10:46] LABS: ALBUMIN 4.3 g/dL (3.2-5.5); ALBUMIN/GLOBULIN RATIO 1.5 (1.0-2.2); BILIRUBIN,TOTAL 0.9 mg/dL (0.2-1.0); CALCIUM 9.5 mg/dL (8.5-10.3); POTASSIUM 3.8 mmol/L (3.5-5.0); TOTAL PROTEIN 7.2 g/dL (6.7-8.2)
--- NOTE | 2022-02-12 12:59 | ED Physician Documentation ---
PD HPI ABD PAIN - Stated complaint Stated Complaint: LOSS OF APPITIE, DIRRARHEA - Chief complaint Chief Complaint: Abd Pain - History obtained from History obtained from: Patient - Additional information Additional information: This is a 31-year-old male with no significant past medical history who presents with generalized abdominal pain sometimes on the left and a recent more sharp pain on the right as well as some bloody stool over the course last couple days. Pain has actually resolved however since he has been here in the ER. He has no fever chills, no vomiting, no consistent abdominal pain, no urinary symptoms. Patient was here couple of days ago for an asthma exacerbation and has been on ibuprofen as well as steroids for that. He denies any atypical food or water sources, no recent travel, no abdominal distention or difficulty with stools, no difficulty passing gas. Review of Systems Ten Systems: 10 systems reviewed and negative (Except as noted in HPI) PD PAST MEDICAL HISTORY - Past Medical History Past Medical History: Yes Cardiovascular: None, Other (bicuspid aortic valve) Respiratory: Asthma (pm steroid inhaler) Neuro: None Endocrine/Autoimmune: None GI: GERD : Kidney stones HEENT: None Psych: None Musculoskeletal: None Derm: None - Past Surgical History Past Surgical History: Yes General:  Ortho: Other - Present Medications Home Medications: Ambulatory Orders Medication Instructions Recorded Confirmed Albuterol 2.5 mg INH Q4H PRN 07/14/17 09/22/19 Fluticasone 44 Mcg [Flovent] 1 puffs INH BID 09/15/19 09/23/19 Omeprazole 40 mg PO DAILY 09/15/19 09/23/19 Hydrocodone/Acetaminophen 1 each PO Q6HR PRN #30 tablet 09/23/19 [Hydrocodone-Acetamin 5-325 mg] predniSONE [Deltasone] 10 mg PO [id number] #42 tab 02/10/22 - Allergies Allergies/Adverse Reactions: Allergies Allergy/AdvReac Type Severity Reaction Status Date / Time Sulfa (Sulfonamide AdvReac Anaphylaxis Verified 02/12/22 10:01 Antibiotics) - Social History Does the pt smoke?: Yes Smoking Status: Former smoker (quit march 04 2019) Does the pt drink ETOH?: Yes Does the pt have substance abuse?: No - Immunizations Immunizations are current?: Yes - POLST Patient has POLST: No PD ED PE NORMAL - Vitals Vital signs reviewed: Yes - General General: Alert and oriented X 3, No acute distress, Well developed/nourished - HEENT HEENT: Atraumatic, Moist mucous membranes, Pharynx benign - Neck Neck: Supple, no meningeal sign, No JVD - Cardiac Cardiac: RRR, No murmur, No gallop, No rub - Respiratory Respiratory: No respiratory distress, Clear bilaterally - Abdomen Abdomen: Normal bowel sounds, Soft, Non tender, Non distended, No organomegaly - Rectal Rectal: Pt declined - Derm Derm: Normal color, Warm and dry, No rash - Extremities Extremities: No deformity, No edema - Neuro Neuro: Alert and oriented X 3 Eye Opening: Spontaneous Motor: Obeys Commands Verbal: Oriented GCS Score: 15 - Psych Psych: Normal mood, Normal affect Results - Vitals Vitals: Vital Signs - 24 hr 02/12/22 09:57 Temperature 36.8 C Heart Rate 84 Respiratory 16 Rate Blood Pressure 161/110 H O2 Saturation 96 Oxygen O2 Source Room air - Labs Labs: Laboratory Tests 02/12/22 02/12/22 10:10 10:10 WBC 14.6 H RBC 4.99 Hgb 15.5 Hct 44.4 MCV 89.0 MCH 31.1 H MCHC 34.9 RDW 12.1 Plt Count 289 MPV 9.9 Neut # (Auto) 9.7 H Lymph # (Auto) 3.8 H [place] # (Auto) 0.9 Eos # (Auto) 0.2 Baso # (Auto) 0.0 Absolute Nucleated RBC 0.00 Nucleated RBC % 0.0 Sodium 140 Potassium 3.8 Chloride 103 Carbon Dioxide 27 Anion Gap 10.0 BUN 12 Creatinine 1.0 Estimated GFR (MDRD) 86 L Glucose 136 H Calcium 9.5 Total Bilirubin 0.9 AST 40 ALT 72 H Alkaline Phosphatase 43 Total Protein 7.2 Albumin 4.3 Globulin 2.9 Albumin/Globulin Ratio 1.5 Lipase 29 PD MEDICAL DECISION MAKING - ED course Complexity details: reviewed results, re-evaluated patient, considered differential, d/w patient ED course: 31-year-old male who presents with abdominal pain as per HPI, However does not have pain at this time. The patient is well-appearing, I cannot reproduce pain on physical exam, he has stable vital signs. We did obtain labs which largely reassuring, WBC down substantially from prior, H/H stable. Patient does note that he has had some blood in his stool though no hemorrhoids or fissures. A discussed with patient that he may have a mild colitis or secondary to recent steroid and NSAID use however as his H&H is stable, he does not need an emergent colonoscopy. Given his symptoms are currently resolved and I cannot reproduce the pain on physical exam I do not think any imaging is indicated at this time either. I recommended that he stop NSAIDs and Steroids, adhere to a soft diet and he may take [id number] famotidine or similar to help with his symptoms. He was advised to follow-up with GI if no improvement at which point they would do a colonoscopy, or return to the ER if worsening sx. Departure - Departure Disposition: 01 Home, Self Care Clinical Impression: Abdominal pain Qualifiers: Abdominal location: lower abdomen, unspecified Qualified Code(s): R10.30 - Lower abdominal pain, unspecified Condition: Good Instructions: ED Abdominal Pain Unkn Cause Male Comments: As we discussed, since your symptoms are improving and the pain is improving, no additional testing is indicated at this time. Recommend that you avoid aspirin or NSAIDs which includes ibuprofen and Aleve but you may take Tylenol as needed for discomfort. Adhere to a low-fat and light diet over the next several days until your symptoms improve. If you have ongoing blood in your stool or worsening pain or you develop a fever or other new concerns, return to the ER. Please adhere to a light diet, no meats, no spicy or high-fat foods, and stick to easily digestible foods.Please follow up with PCP to recheck blood pressure as it was elevated here. Discharge Date/Time: 02/12/22 13:02
== END 2022-02-12 13:02 | disposition home or self-care (01) ==
LOC: ED 09:40
DX: R10.30 Lower abdominal pain, unspecified (principal); R19.5 Other fecal abnormalities; K21.9 Gastro-esophageal reflux disease without esophagitis; J45.909 Unspecified asthma, uncomplicated
CPT/HCPCS: 36415; 80053; 83690; 85025; 99281; 99283

== ENCOUNTER 2022-02-14 01:10 | Outpatient (CLI) | payer OTHER | END 2022-02-14 23:59 | disposition critical access hospital (66) | LOC: EMS 01:10 | DX: R06.00 Dyspnea, unspecified (principal); R07.9 Chest pain, unspecified; R10.84 Generalized abdominal pain; M79.89 Other specified soft tissue disorders; R00.0 Tachycardia, unspecified; L29.9 Pruritus, unspecified; R23.2 Flushing | CPT/HCPCS: A0425; A0427 ==

== ENCOUNTER 2022-02-14 01:27 | Emergency (ER) | payer OTHER ==
--- NOTE | 2022-02-14 01:46 | ED Physician Documentation ---
History of Present Illness - Stated complaint Stated Complaint: ALLERGIC REACTION - Chief complaint Chief Complaint: Allergic Rx - Additonal information Additional information: Patient 31-year-old male presenting to the emergency department with concern for allergic reaction. Reported Outbreak of hives with associated wheeze a few hours ago. Denies previous anaphylactic reactions. Does report history of asthma and attempted to use his rescue inhaler at home with only minimal relief. Reports had a similar episode though not as severe 3 days ago. Has follow-up appointment with primary care tomorrow. Review of Systems Ten Systems: 10 systems reviewed and negative Respiratory: reports: Wheezing Skin: reports: Rash PD PAST MEDICAL HISTORY - Past Medical History Cardiovascular: None, Other (bicuspid aortic valve) Respiratory: Asthma (pm steroid inhaler) Neuro: None Endocrine/Autoimmune: None GI: GERD : Kidney stones HEENT: None Psych: None Musculoskeletal: None Derm: None - Past Surgical History Past Surgical History: Yes General:  Ortho: Other - Present Medications Home Medications: Ambulatory Orders Medication Instructions Recorded Confirmed Albuterol 2.5 mg INH Q4H PRN 07/14/17 09/22/19 Fluticasone 44 Mcg [Flovent] 1 puffs INH BID 09/15/19 09/23/19 Omeprazole 40 mg PO DAILY 09/15/19 09/23/19 predniSONE [Deltasone] 10 mg PO [id number] #42 tab 02/10/22 ALPRAZolam [Xanax] 0.25 mg PO DAILY PRN 02/14/22 02/14/22 amLODIPine [Norvasc] 5 mg PO DAILY 02/14/22 02/14/22 hydroCHLOROthiazide [Hydrodiuril] 25 mg PO DAILY 02/14/22 02/14/22 - Allergies Allergies/Adverse Reactions: Allergies Allergy/AdvReac Type Severity Reaction Status Date / Time Sulfa (Sulfonamide AdvReac Anaphylaxis Verified 02/14/22 01:49 Antibiotics) - Social History Does the pt smoke?: Yes Smoking Status: Former smoker (quit march 04 2019) Does the pt drink ETOH?: Yes Does the pt have substance abuse?: No - Immunizations Immunizations are current?: Yes - POLST Patient has POLST: No PD ED PE NORMAL - Vitals Vital signs reviewed: Yes (Tachycardic but hemodynamically stable) - General General: Alert and oriented X 3, No acute distress - HEENT HEENT: Atraumatic, PERRL, EOMI, Ears normal, Moist mucous membranes - Neck Neck: Supple, no meningeal sign, No bony TTP, No adenopathy, No JVD, No bruit, C-Spine cleared by NEXUS criteria - Cardiac Cardiac: RRR, No murmur, No gallop, No rub, Strong equal pulses - Respiratory Respiratory: No respiratory distress, Clear bilaterally - Abdomen Abdomen: Normal bowel sounds - Male Male : Deferred - Rectal Rectal: Deferred - Back Back: No CVA TTP - Derm Derm: Other (Diffuse urticaria) Results - Vitals Vitals: Vital Signs - 24 hr 02/14/22 02/14/22 02/14/22 01:30 02:00 02:05 Temperature 37.0 C Heart Rate 117 H 89 89 Respiratory 22 12 16 Rate Blood Pressure 140/96 H 123/84 H O2 Saturation 97 100 02/14/22 02:30 Temperature Heart Rate 94 Respiratory 24 Rate Blood Pressure 122/94 H O2 Saturation 98 Oxygen O2 Source Room air PD MEDICAL DECISION MAKING - ED course Complexity details: d/w patient, d/w family ED course: Patient 31-year-old male presenting to the emergency department with concern for acute allergic reaction. Reported hives and wheezing at home. Tachycardic but hemodynamically stable with no indications of anaphylaxis on arrival here to the emergency department. Clear aeration in all lung elam but did request a breathing treatment. This was provided as well as dose Decadron, Pepcid and Benadryl. He was monitored in the emergency department and on reevaluation is rash had resolved and he reported feeling significantly better. He reports a follow-up appointment with primary care tomorrow. Will discharge with presc ription for EpiPen. Discussed this medication as well as its indications for use, risks and benefits with patient. Clear return precautions given. Departure - Departure Disposition: 01 Home, Self Care Clinical Impression: Allergic reaction Instructions: ED Allergic Reaction General Other
[2022-02-14] MEDS ORDERED: DEXAMETHASONE 10 MG/ML VIAL IVP STA (01:50)
[2022-02-14] MEDS ORDERED: IPRATROPIUM/ALBUTEROL 3 ML NEB INH STA (01:50)
[2022-02-14] MEDS ORDERED: FAMOTIDINE 20 MG/2 ML VIAL IVP STA (01:50)
[2022-02-14] MEDS ORDERED: diphenhydrAMINE INJ 50 MG/ML VIAL IVP STA (01:50)
[2022-02-14 02:40] VITALS: BP 122/94
== END 2022-02-14 03:08 | disposition home or self-care (01) ==
LOC: EDUNIT# → ED 01:27
DX: T78.40XA Allergy, unspecified, initial encounter (principal); X58.XXXA Exposure to other specified factors, initial encounter; L50.0 Allergic urticaria; R00.0 Tachycardia, unspecified; J45.909 Unspecified asthma, uncomplicated; Z79.899 Other long term (current) drug therapy; Z87.891 Personal history of nicotine dependence
CPT/HCPCS: 94640; 96374; 96375; 99281; 99283; J1200

== ENCOUNTER 2022-06-16 15:21 | Outpatient (CLI) | payer OTHER ==
--- NOTE | 2022-06-16 16:08 | SLEEP CARE CONSULTATION ---
Information from patient questionnaire entered by Betty Rowan. I have reviewed and concur with the information entered by Betty Rowan. This document represents the service I personally performed and the decisions made by me, Cierra Lemus ARNP. History of Present Illness Service Date and Time: 06/16/2022 1521 Reason for Visit: New patient Accompanied by: Spouse (Olivia) Chief Complaint: reports: Snoring, Observed pauses in breathing, Fatigue Date of Onset: 3YRS Usual bedtime: 8-10PM Time it takes to fall asleep: 30-60MIN Snores at night: Yes Observed to quit breathing while asleep: Yes Sleeps alone due to snoring: No Number of times waking at night: 0-1 Reasons for waking at night: reports: Gasping for air (related to asthma, very rare), Bathroom. denies: Choking, Snoring Toss, Turn, or Twitch while sleeping: Yes Recalls having dreams: Yes Usually gets out of bed at: 530AM; weekends 0700 Feels refreshed in the morning: No Morning headache: No Sleepy or fatigued during the day: Yes Ever fallen asleep while driving: No Takes day naps: Yes (daily for about an hour) Dreams during day naps: Yes Additional HPI information: I had the pleasure of seeing BERNARDINO PARTIDA today regarding the possibility of him having a sleep disorder. His current complaints are snoring, observed pauses in breathing and fatigue. He states he saw his dentist who asked him about grinding his teeth. He denied this but then he asked about sleep apnea. His states that he will stop breathing and gasps in the middle of the night. He does not necessarily wake up when this happens. He and his state he is always tired and sleepy. His states he snores at night. He will laugh, talks and will reach out with his hand when sleeping. 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 Patient is and lives in [place]. Have you smoked in the past 12 months: Yes (vaping nicotine daily) Years of smokin Quit date: 2019 Alcohol use: Yes Alcohol amount and frequency: 6 PACK EVERY TWO WEEKS Caffeine use: Yes Caffeine amount and frequency: 1-2 CANS ALMOST EVERYDAY Family History Family history of sleep disordered breathing: No Allergies and Home Medications Known drug allergies: Yes (SULFA) Drug allergies reviewed: Yes Home medication list reviewed: Yes (as listed in EMR) Allergy and home medication list: Allergies Sulfa (Sulfonamide Antibiotics) Adverse Reaction (Verified 06/15/22 17:18) Anaphylaxis Review of Systems Weight gain over past 5 years: 10, up with weight now Weight loss over past 5 years: 20 Cardiovascular: reports: high blood pressure Respiratory: reports: shortness of breath Gastrointestinal: reports: heartburn Neurological: reports: headaches. denies: seizure Psychiatric: reports: anxiety, depression. denies: Attention Deficit Hyperact ivity Ear/Nose/Throat: reports: wisdom teeth removed. denies: tonsillectomy Endocrine: reports: sluggishness. denies: thyroid disease Immunologic: reports: allergies to food or environment Physical Exam Vital signs obtained and entered by: BETTY Casiano MA Blood Pressure: 148/98 (LEFT ARM) Cuff size: regular Heart Rate: 88 O2 Saturation: 98 Height: 5 ft 10 in Weight: 258 lb Body Mass Index: 37.0 BMI Classification: Obese Neck circumference: 19 Mouth and throat: narrow oropharynx Soft palate: long Hard palate: normal Uvula: normal Uvula visualization: 25% Mallampati Class III Tongue: enlarged in size with teeth goins on lateral edges Tonsils: 1+ Neck: normal w/o lymphadenopathy or thyromegaly Heart: regular rate and rhythm Lungs: clear bilaterally Impression and Plan 1. Suspected Obstructive Sleep Apnea-Hypopnea Syndrome, as suggested by a history of loud and irregular snoring, observed cessation of breath while asleep, gasping or choking in sleep, unrefreshed sleep, cognitive impairment, and excessive daytime sleepiness. Narrow oropharynx and obesity are common predisposing factors for obstructive sleep apnea-hypopnea syndrome. I recommend proceeding to polysomnography to confirm the diagnosis and to assess severity. If the patient has significant sleep disordered breathing, a manual CPAP titration study will also be performed to find the optimal treatment pressure. I informed the patient of what the sleep studies involve and after some discussion, obtained agreement to proceed. The pathophysiology of obstructive sleep apnea-hypopnea syndrome was discussed with the patient and health risks of cardiovascular and cerebrovascular disease if not treated. Risks of drowsy driving discussed in detail and patient advised to avoid long distance driving and to well puller head at the first sign of drowsiness. Patient agreed to plan. * Schedule polysomnography * Avoid long distance driving or driving when feeling sleepy. * Avoid alcohol, sedative and muscle relaxant around bedtime. * Attempt to lose weight. * Review instructions provided by trained office staff on how to prepare for the sleep study. * Return for follow-up after sleep study completed. Counseling Topics: Weight loss health impact Visit Type: In Office Time Spent with Patient (minutes): 30 Provider Statement: I spent 100% of the Face to Face Visit with the patient with greater than 50% spent counseling the patient and coordination of care.
[2022-06-16 16:10] VITALS: BP 148/98
== END 2022-06-16 15:22 | disposition home or self-care (01) ==
LOC: SC 15:21
PROVIDERS: ATTEND Nurse Practitioner Family
DX: G47.10 Hypersomnia, unspecified (principal); R53.83 Other fatigue; G47.8 Other sleep disorders; R06.83 Snoring; R06.81 Apnea, not elsewhere classified; I10 Essential (primary) hypertension; E66.9 Obesity, unspecified; Z68.37 Body mass index [BMI] 37.0-37.9, adult; F17.290 Nicotine dependence, other tobacco product, uncomplicated
CPT/HCPCS: 99203; 99212

== ENCOUNTER 2022-09-07 09:52 | Outpatient (CLI) | payer OTHER | END 2022-09-07 09:53 | disposition home or self-care (01) | LOC: SC 09:52 | PROVIDERS: ATTEND Nurse Practitioner Family | DX: G47.10 Hypersomnia, unspecified (principal) | CPT/HCPCS: 95806 ==

== ENCOUNTER 2022-09-13 10:00 | Outpatient (CLI) | payer OTHER | END 2022-09-13 10:01 | disposition home or self-care (01) | LOC: SC 10:00 | PROVIDERS: ATTEND Nurse Practitioner Family | DX: Z53.9 Procedure and treatment not carried out, unspecified reason (principal) | CPT/HCPCS: 95806 ==

== ENCOUNTER 2023-05-31 10:00 | Outpatient (CLI) | payer OTHER ==
[2023-05-31 14:50] LABS: CHLAMYDIA TRACHOMATIS DNA NEGATIVE (NEGATIVE); NEISSERIA GONORRHOEAE DNA NEGATIVE (NEGATIVE); TRICHOMONAS VAGINALIS DNA NEGATIVE (NEGATIVE)
== END 2023-05-31 10:15 | disposition home or self-care (01) ==
LOC: LAB.N 10:00
PROVIDERS: ATTEND Specialist
DX: Z11.3 Encounter for screening for infections with a predominantly sexual mode of transmission (principal)
CPT/HCPCS: 36415; 86592; 86695; 86696; 87389; 87491; 87591; 87661